=== PATIENT | male | born 1980 | race Caucasian/White ===

== ENCOUNTER 2016-12-10 20:20 | Emergency (ER) | payer SELFPAY ==
--- NOTE | 2016-12-16 08:46 | ER ---
ADMIT: 12/10/2016 RM/LOC: ER [facility] MR#: [id number] [id number] [facility] [place], [place] [id number] SERJIO HARTMANN [address] [facility] [address] [place] [address] Emergency Room Report SEX: M AGE: 36 : 1980 DATE: 12/10/2016 A 36-year-old was having rough intercourse with his significant other. Was lifting her up when he felt a sudden bulge just above his scrotum on the left side. See T-sheet for history and physical. The patient is diagnosed with inguinal hernia. He was discharged, instructed not to lift, push, or pull anything greater than 40 pounds. Follow up with his primary doctor as needed. Chris Diaz MD/ monalisa JOB #: [id number] CC: Wood Kidd MD, Attending Physician Nilo De La Cruz MD, Family Physician
== END 2016-12-10 21:00 | disposition home or self-care (01) ==
LOC: ER 20:20
DX: K40.90 Unilateral inguinal hernia, without obstruction or gangrene, not specified as recurrent (principal); F17.210 Nicotine dependence, cigarettes, uncomplicated